=== PATIENT | male | born 1960 | race Caucasian/White ===

== ENCOUNTER → 2016-12-28 | Outpatient (CLI) | payer OTHER ==
[~2016-12-28] MED LIST: ALLERGY RELIEF10 M1 PO; ALPRAZOLAM0.5 MG PO; BONIVA150 MG PO; CLINDAMYCIN HC300 MG PO; COMBIVENT0.074 GM/I INH; IBUPROFEN800 MG PO; MEGACE400 MG/10 PO; MOBIC15 MG PO; NEURONTIN 300300 MG PO; NORCO 10-325 T1 EACH PO; PERCOCET 10-321 EACH PO; PHENERGAN 25 MG25 M1 PO; ROPINIROLE HCL1 MG PO; SYMBICORT 160-1 INHA INH; VITAMIN C 500500 MG PO
== END ==
LOC: KOH-I 14:17
DX: M84.371A Stress fracture, right ankle, initial encounter for fracture (principal); M25.871 Other specified joint disorders, right ankle and foot; Z98.1 Arthrodesis status
CPT/HCPCS: 73700

== ENCOUNTER → 2017-01-30 | Outpatient (CLI) | payer OTHER ==
[2017-01-30 10:51] LABS: HEMOGLOBIN 15.4 gm/dl (14.0-17.5); RED BLOOD COUNT 4.38 M/UL (4.20-5.50); WHITE BLOOD COUNT 8.5 K/UL (4.5-11.0)
[2017-01-30 11:08] LABS: BUN/CREATININE RATIO 7 (0-10)
== END ==
LOC: OPSV2 10:00
PROVIDERS: Podiatrist Foot & Ankle Surgery
DX: Z01.810 Encounter for preprocedural cardiovascular examination (principal); Z01.812 Encounter for preprocedural laboratory examination; Z01.818 Encounter for other preprocedural examination; T84.84XA Pain due to internal orthopedic prosthetic devices, implants and grafts, initial encounter; I10 Essential (primary) hypertension; J44.9 Chronic obstructive pulmonary disease, unspecified; Z83.3 Family history of diabetes mellitus
CPT/HCPCS: 36415; 71020; 80048; 83036; 85027; 93005